=== PATIENT | female | born 1940 | race Caucasian/White ===

== ENCOUNTER 2018-07-24 15:07 | Emergency (ER) | payer OTHER, MEDICARE ==
[~2018-07-24] VITALS: Ht 154.9 cm; Wt 68.0 kg
[~2018-07-24 15:07] MED LIST: 2 BP MEDS; ALUMAG30SU PO; AMLO5 PO; BISA10S PR; CETI10; CHLO25 PO; CHOL10002 PO; CVS DISPOSABLE399 ML PR; DOCU100 PO; ENOX40I SC; ERYT.5TO BOTHEYES; FAMO20 PO; HYDACE5; HYDACE5 PO; HYDR1TAB94 PO; LISI20 PO; PRED1SU BOTHEYES; RXHYDACE PO; TRAM50; TRAM50 PO; Toprol Xl25 MG PO
== END 2018-07-24 16:53 | disposition home or self-care (01) ==
LOC: ER 15:07
DX: S60.221A Contusion of right hand, initial encounter (principal); V89.2XXA Person injured in unspecified motor-vehicle accident, traffic, initial encounter; Z79.899 Other long term (current) drug therapy; I10 Essential (primary) hypertension; Z87.891 Personal history of nicotine dependence
CPT/HCPCS: 73130; 99284-25

== ENCOUNTER 2018-10-05 21:07 | Inpatient (IN) | payer MEDICARE, OTHER ==
[~2018-10-05] VITALS: Ht 154.9 cm; Wt 77.0 kg
[2018-10-05 22:04] LABS: BASOPHILS ABSOLUTE AUTO 0.03 K/mm3 (0.00-0.23); BASOPHILS PERCENT AUTO 0 % (0-2); EOSINOPHILS PERCENT AUTO 0 % (0-6); Hematocrit 42.3 % (33.0-51.0); Hemoglobin 13.7 g/dL (11.5-16.0); IMMATURE GRAN PERCENT AUTO 1 % (0-1); LYMPHOCYTES ABSOLUTE AUTO 0.95 K/mm3 (0.84-5.20); LYMPHOCYTES PERCENT AUTO 4 % (21-46); MONOCYTES ABSOLUTE AUTO 1.85 K/mm3 (0.16-1.47); MONOCYTES PERCENT AUTO 9 % (4-13); Mean Corpuscular HGB 26.7 pg (26.0-34.0); Mean Corpuscular HGB Conc 32.4 g/dL (31.5-36.5); Mean Corpuscular Volume 82 fL (80-100); Mean Platelet Volume 9.4 fL (9.1-12.4); NEUTROPHILS ABSOLUTE AUTO 18.63 K/mm3 (1.96-9.15); NEUTROPHILS PERCENT AUTO 86 % (41-73); Platelet Count 332 K/mm3 (150-400); RDW Coefficient Variation 13.4 % (11.7-14.2); RDW Standard Deviation 40.1 fL (35.1-46.3); Red Blood Cell Count 5.14 M/mm3 (3.80-5.20); White Blood Cell Count 21.56 K/mm3 (4.00-11.30)
[2018-10-05 22:25] LABS: Alanine Aminotransfer (ALT/SGP 49 U/L (12-78); Albumin, Blood 3.3 g/dL (3.4-5.0); Albumin/Globulin Ratio 0.8 (0.8-1.8); Alk Phos 98 U/L (50-136); Anion Gap 13 mmol/L (6-16); Aspartate Aminotrans (AST/SGOT 126 U/L (12-37); Bilirubin, Total 0.8 mg/dL (0.1-1.0); Blood Urea Nitrogen 32 mg/dL (8-24); Bun/Creatinine Ratio 35.7 (12.0-20.0); CO2, Blood 23 mmol/L (21-32); Calcium, Blood 8.9 mg/dL (8.5-10.1); Chloride, Blood 99 mmol/L (98-108); Globulin, Blood 4.2 g/dL (2.2-4.0); Glomerular Filtration Rate >60 (60-); Glucose, Blood 140 mg/dL (70-99); Potassium, Blood 3.4 mmol/L (3.5-5.5); Sodium, Blood 135 mmol/L (136-145); Total Protein, Blood 7.5 g/dL (6.4-8.2)
[2018-10-05 23:17] LABS: International Normalized Ratio 1.07; Prothrombin Time Results 11.3 Sec (9.7-11.5)
[2018-10-06 04:14] LABS: BASOPHILS ABSOLUTE AUTO 0.04 K/mm3 (0.00-0.23); BASOPHILS PERCENT AUTO 0 % (0-2); EOSINOPHILS PERCENT AUTO 0 % (0-6); Hematocrit 40.1 % (33.0-51.0); IMMATURE GRAN PERCENT AUTO 1 % (0-1); LYMPHOCYTES ABSOLUTE AUTO 1.16 K/mm3 (0.84-5.20); LYMPHOCYTES PERCENT AUTO 5 % (21-46); MONOCYTES ABSOLUTE AUTO 2.08 K/mm3 (0.16-1.47); MONOCYTES PERCENT AUTO 9 % (4-13); Mean Corpuscular HGB 27.4 pg (26.0-34.0); Mean Corpuscular HGB Conc 32.4 g/dL (31.5-36.5); Mean Corpuscular Volume 84 fL (80-100); Mean Platelet Volume 9.5 fL (9.1-12.4); NEUTROPHILS ABSOLUTE AUTO 18.75 K/mm3 (1.96-9.15); NEUTROPHILS PERCENT AUTO 85 % (41-73); Platelet Count 299 K/mm3 (150-400); RDW Coefficient Variation 13.4 % (11.7-14.2); RDW Standard Deviation 41.5 fL (35.1-46.3); Red Blood Cell Count 4.75 M/mm3 (3.80-5.20); White Blood Cell Count 22.13 K/mm3 (4.00-11.30)
[2018-10-06 04:30] LABS: Bun/Creatinine Ratio 36.2 (12.0-20.0); Calcium, Blood 8.7 mg/dL (8.5-10.1); Creatinine, Blood 0.99 mg/dL (0.40-1.00); Potassium, Blood 3.8 mmol/L (3.5-5.5)
--- NOTE | 2018-10-06 18:08 | NUR ---
1738 PT ADMITTED TO MEDICAL FLOOR VIA GURNEY. TRANSFERED TO BED WITH SLIDER SHEET AND 3 STAFF. DAUGHTER AT BEDSIDE.
[2018-10-07 05:30] LABS: BASOPHILS ABSOLUTE AUTO 0.02 K/mm3 (0.00-0.23); BASOPHILS PERCENT AUTO 0 % (0-2); EOSINOPHILS ABSOLUTE AUTO 0.07 K/mm3 (0.00-0.68); EOSINOPHILS PERCENT AUTO 1 % (0-6); Hemoglobin 10.2 g/dL (11.5-16.0); IMMATURE GRAN ABSOLUTE AUTO 0.02 K/mm3 (0.00-0.10); IMMATURE GRAN PERCENT AUTO 0 % (0-1); LYMPHOCYTES ABSOLUTE AUTO 1.61 K/mm3 (0.84-5.20); LYMPHOCYTES PERCENT AUTO 15 % (21-46); MONOCYTES ABSOLUTE AUTO 1.27 K/mm3 (0.16-1.47); MONOCYTES PERCENT AUTO 12 % (4-13); Mean Corpuscular HGB 26.6 pg (26.0-34.0); Mean Corpuscular HGB Conc 31.9 g/dL (31.5-36.5); Mean Corpuscular Volume 83 fL (80-100); Mean Platelet Volume 10.1 fL (9.1-12.4); NEUTROPHILS ABSOLUTE AUTO 7.59 K/mm3 (1.96-9.15); NEUTROPHILS PERCENT AUTO 72 % (41-73); Platelet Count 237 K/mm3 (150-400); RDW Coefficient Variation 13.6 % (11.7-14.2); RDW Standard Deviation 40.9 fL (35.1-46.3); Red Blood Cell Count 3.84 M/mm3 (3.80-5.20); White Blood Cell Count 10.58 K/mm3 (4.00-11.30)
[2018-10-07 05:42] LABS: Alanine Aminotransfer (ALT/SGP 34 U/L (12-78); Albumin, Blood 2.5 g/dL (3.4-5.0); Albumin/Globulin Ratio 0.8 (0.8-1.8); Alk Phos 68 U/L (50-136); Anion Gap 8 mmol/L (6-16); Aspartate Aminotrans (AST/SGOT 65 U/L (12-37); Bilirubin, Total 0.6 mg/dL (0.1-1.0); Blood Urea Nitrogen 38 mg/dL (8-24); Bun/Creatinine Ratio 83.9 (12.0-20.0); CO2, Blood 24 mmol/L (21-32); Calcium, Blood 8.1 mg/dL (8.5-10.1); Chloride, Blood 106 mmol/L (98-108); Creatinine, Blood 0.45 mg/dL (0.40-1.00); Globulin, Blood 3.3 g/dL (2.2-4.0); Glomerular Filtration Rate >60 (60-); Glucose, Blood 89 mg/dL (70-99); Magnesium, Blood 2.5 mg/dL (1.6-2.4); Phosphorus, Blood 1.7 mg/dL (2.5-4.9); Potassium, Blood 3.3 mmol/L (3.5-5.5); Sodium, Blood 138 mmol/L (136-145); Total Protein, Blood 5.8 g/dL (6.4-8.2)
--- NOTE | 2018-10-07 05:55 | NUR ---
OSTEOPATHIC PHYSICIAN SUMMARY NEW ADMIT JUST BEFORE START OF SHIFT. PT HERE WITH SEPSIS R/T PROBABLE UTI. PT AAOX3, KNOWS SHE'S IN THE HOSPITAL IN [place] BUT THOUGHT IT WAS THE 1959'S. FOLLOWS DIRECTION AND ANSWERS MOST QUESTIONS APPROPRIATELY. PT HAS HX OF POST POLIO COMPLICATIONS WHICH CAUSES R SIDED WEAKNESS. PT IS A 1-2 PERSON TURN AND CHANGE. INCONTINENT IN ATTENDS, URINE REMAINS ODIFEROUS. PT HAS AN OLD ABRASION ON HER FORHEAD AND LEFT SHOULDER DTR REPORTS FROM A PREVIOUS FALL AT HOME. DTR REPORTS PT'S MENTATION IS MUCH IMPROVED COMPARED TO WHEN PT FIRST ARRIVED TO THE ER. VITALS HAVE BEEN STABLE. PT DENIES PAIN. WILL CONTINUE TO MONITOR.
--- NOTE | 2018-10-07 18:12 | NUR ---
SHIFT SUMMARY. A&OX3, PLEASANT. PT W/C BOUND AT BASELINE ALTHOUGH IS USUALLY ABLE TO SLIDE BOARD TRANSFER AT HOME, PT/OT WORKED WITH PT TODAY AND PT WAS NOT ABLE TO TRANSFER WITH FACILITY SLIDE BOARD, DAUGHTER HAS BROUGHT IN PT'S SLIDE BOARD FOR THERAPY TOMORROW. PT WITH ONE EPISODE OF PAIN TO R LEG THAT WAS IMPROVED WITH ROM. NO N/V, FAIR PO INTAKE. NON SOB. DAUGHTER AT BEDSIDE MOST OF THE DAY. NO NEW CHANGES.
--- NOTE | 2018-10-08 04:58 | NUR ---
BULB PLANTER SUMMARY NO ACUTE CHANGES THIS SHIFT. PT AAOX3 AND PLEASANT. MENTATION SEEMS IMPROVED COMPARED TO YESTERDAY. PT'S DTR ALSO REPORTS HER MOTHER'S MENTATION IS "IMPROVING SO MUCH". PT CONTINUES IV ABX. DENIES PAIN. IS INCONTINENT AND REQUIRES ASSISTANCE WITH REPOSITIONING DUE TO WEAKNESS FROM POST POLIO. VSS, WILL CONTINUE TO MONITOR.
[2018-10-08 05:16] LABS: Anion Gap 9 mmol/L (6-16); Blood Urea Nitrogen 23 mg/dL (8-24); Bun/Creatinine Ratio 71.9 (12.0-20.0); CO2, Blood 21 mmol/L (21-32); Chloride, Blood 109 mmol/L (98-108); Creatinine, Blood 0.32 mg/dL (0.40-1.00); Glomerular Filtration Rate >60 (60-); Glucose, Blood 95 mg/dL (70-99); Phosphorus, Blood 2.1 mg/dL (2.5-4.9); Potassium, Blood 3.4 mmol/L (3.5-5.5); Sodium, Blood 139 mmol/L (136-145)
--- NOTE | 2018-10-08 17:40 | NUR ---
PT IS A/OX3, PLEASANT AND COOPERATIVE, THE PT IS UP TO THE CHAIR WITH ASSISTANCE USEING A SLIDER BOARD, THE PT APPEARS TO BE BREATHING EASILY TODAY ON RA, THE PT REPORTED SOME MILD PAIN IN HER LEFT HAND DUE TO A FALL SHE HAD PRIOR TO ADMISSION, HOWEVER REPORTS THE PAIN MILD AND TOLERABLE, THE PT WAS UP TO THE CHAIR X2 TODAY, DAUGHTER AT THE BEDSIDE CALL LIGHT IN REACH
--- NOTE | 2018-10-09 06:35 | NUR ---
SHIFT SUMMARY PT IS AN 78 Y/O FEMALE, ADMITTED FOR SEVERE SEPSIS. SHE IS A&O X 3, AND OCCASIONALLY FORGETFUL. PT HAS A HX OF POLIO, AND IS UNABLE TO USE HER L LEG, AND SUCH IS A HEAVY 2 PERSON ASSIST TO A CHAIR AND IS WHEELCHAIR BOUND AT BASELINE. SHE DENIED ANY COMPLAINTS OF PAIN, NAUSEA OR SOB DURING THE NIGHT. VITAL SIGNS STABLE. NO OTHER ACUTE CHANGES IN PT CONDITION NOTED. WILL CONTINUE TO MONITOR AND TREAT PER EMAR.
[2018-10-09 10:37] LABS: BASOPHILS ABSOLUTE AUTO 0.04 K/mm3 (0.00-0.23); BASOPHILS PERCENT AUTO 0 % (0-2); EOSINOPHILS PERCENT AUTO 2 % (0-6); Hematocrit 34.2 % (33.0-51.0); Hemoglobin 10.8 g/dL (11.5-16.0); IMMATURE GRAN ABSOLUTE AUTO 0.05 K/mm3 (0.00-0.10); IMMATURE GRAN PERCENT AUTO 1 % (0-1); LYMPHOCYTES ABSOLUTE AUTO 1.16 K/mm3 (0.84-5.20); LYMPHOCYTES PERCENT AUTO 12 % (21-46); MONOCYTES ABSOLUTE AUTO 1.14 K/mm3 (0.16-1.47); MONOCYTES PERCENT AUTO 12 % (4-13); Mean Corpuscular HGB 26.6 pg (26.0-34.0); Mean Corpuscular HGB Conc 31.6 g/dL (31.5-36.5); Mean Corpuscular Volume 84 fL (80-100); Mean Platelet Volume 10.2 fL (9.1-12.4); NEUTROPHILS ABSOLUTE AUTO 7.16 K/mm3 (1.96-9.15); NEUTROPHILS PERCENT AUTO 73 % (41-73); Platelet Count 228 K/mm3 (150-400); RDW Standard Deviation 43.1 fL (35.1-46.3); Red Blood Cell Count 4.06 M/mm3 (3.80-5.20); White Blood Cell Count 9.75 K/mm3 (4.00-11.30)
[2018-10-09 10:54] LABS: Anion Gap 6 mmol/L (6-16); Blood Urea Nitrogen 13 mg/dL (8-24); Bun/Creatinine Ratio 47.6 (12.0-20.0); CO2, Blood 23 mmol/L (21-32); Chloride, Blood 105 mmol/L (98-108); Creatinine, Blood 0.27 mg/dL (0.40-1.00); Glomerular Filtration Rate >60 (60-); Glucose, Blood 121 mg/dL (70-99); Phosphorus, Blood 2.2 mg/dL (2.5-4.9); Potassium, Blood 3.9 mmol/L (3.5-5.5); Sodium, Blood 134 mmol/L (136-145)
[2018-10-09] MEDS ORDERED: K-Phos Origina500 MG PO (17:08)
[2018-10-09] MEDS ORDERED: PANT40 PO (17:08)
[2018-10-09] MEDS ORDERED: METR500 PO (17:09)
[2018-10-09] MEDS ORDERED: CEFD300 PO (17:09)
--- NOTE | 2018-10-09 19:37 | NUR ---
SHIFT SUMMARY: NO ACUTE CHANGEWS TO REPORT THIS SHIFT. PT A&O; CALM AND COOPERATIVE WITH CARE. NO C/O PAIN THIS SHIFT. PT HX POLIO; RLE FLACCID. 2MAX ASSIST c SLIDE BOARD FOR TRANSFERS. IV ABX CONTINUING. EXPECTED D/C TO SNF . REPORT GIVEN TO ONCOMING RN.
--- NOTE | 2018-10-09 20:09 | NUR ---
DISCHARGE NOTE PT WAS DC'D FROM [facility] [id number] TODAY TO [facility] REPORT CALLED TO IRMA JOSUE. PT PACKET GIVEN TO [facility].
== END 2018-10-09 19:39 | DRG 871 ==
LOC: ER 21:07 → ERHOLD 10-06 00:55 → MEDS 10-06 17:38
PROVIDERS: Emergency Medicine; Hospitalist; Internal Medicine; ADMIT Hospitalist
DX: A41.9 Sepsis, unspecified organism (principal); J69.0 Pneumonitis due to inhalation of food and vomit; E87.1 Hypo-osmolality and hyponatremia; E83.39 Other disorders of phosphorus metabolism; G14 Postpolio syndrome; I10 Essential (primary) hypertension; Z66 Do not resuscitate; E87.6 Hypokalemia; R65.20 Severe sepsis without septic shock; Z99.3 Dependence on wheelchair; Z87.891 Personal history of nicotine dependence
CPT/HCPCS: 36415; 71046; 80048; 80053; 83605; 83735; 84100; 84484; 85025; 85610; 93005; 93010; 96374; 96375; 96376; 97162; 97166; 97530; 99285-25; J0696; J1650; J2543; J3370; J7030; J7050

== ENCOUNTER 2018-10-29 04:21 | Inpatient (IN) | payer MEDICARE, OTHER ==
[~2018-10-29] VITALS: Ht 154.9 cm; Wt 75.9 kg
[~2018-10-29 04:21] MED LIST changes: +CEFD300 PO; +K-Phos Origina500 MG PO; +METR500 PO; +PANT40 PO
[2018-10-29] MEDS ORDERED: DOCU100 PO (05:05)
[2018-10-29] MEDS ORDERED: BISA10S PR (05:07)
[2018-10-29] MEDS ORDERED: LOPE2C PO (05:08)
[2018-10-29] MEDS ORDERED: CVS DISPOSABLE399 ML (05:08)
[2018-10-29] MEDS ORDERED: Milk Of Ma400 MG/5 M PO (05:09)
[2018-10-29] MEDS ORDERED: ACET325 PO (05:10)
[2018-10-29] MEDS ORDERED: ONDA4ODT MM (05:11)
[2018-10-29 05:44] LABS: Hematocrit 41.5 % (33.0-51.0); Hemoglobin 13.4 g/dL (11.5-16.0); Mean Corpuscular HGB Conc 32.3 g/dL (31.5-36.5); Mean Corpuscular Volume 84 fL (80-100); Mean Platelet Volume 10.2 fL (9.1-12.4); Platelet Count 536 K/mm3 (150-400); RDW Coefficient Variation 14.7 % (11.7-14.2); RDW Standard Deviation 44.5 fL (35.1-46.3); Red Blood Cell Count 4.97 M/mm3 (3.80-5.20); White Blood Cell Count 24.64 K/mm3 (4.00-11.30)
[2018-10-29 05:57] LABS: Alanine Aminotransfer (ALT/SGP 17 U/L (12-78); Albumin, Blood 2.6 g/dL (3.4-5.0); Albumin/Globulin Ratio 0.6 (0.8-1.8); Alk Phos 91 U/L (50-136); Anion Gap 10 mmol/L (6-16); Aspartate Aminotrans (AST/SGOT 19 U/L (12-37); Bilirubin, Total 0.4 mg/dL (0.1-1.0); Blood Urea Nitrogen 16 mg/dL (8-24); Bun/Creatinine Ratio 38.9 (12.0-20.0); CO2, Blood 23 mmol/L (21-32); Calcium, Blood 8.7 mg/dL (8.5-10.1); Chloride, Blood 101 mmol/L (98-108); Creatinine, Blood 0.41 mg/dL (0.40-1.00); Globulin, Blood 4.5 g/dL (2.2-4.0); Glomerular Filtration Rate >60 (60-); Glucose, Blood 151 mg/dL (70-99); Potassium, Blood 4.3 mmol/L (3.5-5.5); Sodium, Blood 134 mmol/L (136-145); Total Protein, Blood 7.1 g/dL (6.4-8.2)
[2018-10-29 06:28] LABS: BAND PERCENT MAN 21 % (0-8); BASOPHILS PERCENT MAN 0 % (0-2); EOSINOPHILS PERCENT MAN 0 % (0-6); LYMPHOCYTES ABSOLUTE MAN 1.72 K/mm3 (0.84-5.20); LYMPHOCYTES PERCENT MAN 7 % (21-46); METAMYELOCYTE ABSOLUTE MAN 0.24 K/mm3 (0.00-0.00); METAMYELOCYTE PERCENT MAN 1 % (0-0); MONOCYTES ABSOLUTE MAN 0.49 K/mm3 (0.16-1.47); MONOCYTES PERCENT MAN 2 % (4-13); NEUTROPHILS ABSOLUTE MAN 22.17 K/mm3 (1.96-9.15); SEG NEUTROPHILS PERCENT MAN 69 % (41-73); TOTAL CELLS COUNTED 100
[2018-10-29 06:43] LABS: Source, Urine Clean Catch
[2018-10-29 06:48] LABS: Blood, Urine 1+ (Neg); Glucose Qualitative, Urine Neg (Neg); Ketones, Urine 1+ (Neg); Leukocyte Esterase, Urine 2+ (Neg); Nitrite, Urine Neg (Neg); Protein, Urine 2+ (Neg); Urobilinogen, Urine 2+ (Normal)
[2018-10-29 06:55] LABS: Appearance, Urine Hazy (Clear); Bilirubin, Urine 1+ (Neg); Color, Urine Yellow (P-Yellow)
[2018-10-29 06:56] LABS: Bacteria Many /hpf; Red Blood Cells, Urine 0-2 /hpf (0-2); Squamous Epithelial Cells Mod /hpf (Few)
--- NOTE | 2018-10-29 11:02 | NUR ---
CONTACTED DAUGHTER PARDEEP, SHE WILL BE AVAILABLE FOR CONSENTS.
--- NOTE | 2018-10-29 11:58 | NUR ---
LATE ENTRY- PATIENT HAD NS INFUSING AT ADMIT TO [facility], PER DR HORNE THAT WAS FINE, AND WE DID NOT NEED TO START LR TKO. ZOSYN SENT TO OR WITH PATIENT FOR ADMINISTRATION. PHONE CONSENT OBTAINED FROM DAUGHTER PARDEEP FERNANDES) PER PATIENT. PATIENT TO OR AFTER ALL CONSENTS OBTAINED IN AN URGENT MANOR. CONTACTED DR VALDOVINOS' OFFICE AND DR ROBBINS'S OFFICE FOR RECORDS PER DR HORNE'S REQUEST. RESULTS GIVEN TO DR HORNE.
--- NOTE | 2018-10-29 12:12 | NUR ---
TYPE AND SCREEN STAT EXPIDITED FOR CONTRACT ASSISTANT. SPECIMEN HAND DELIVERED TO LAB.
[2018-10-29 15:57] LABS: PCO2 Arterial 26.6 mmHg (35-45); PO2 Arterial 90.6 mmHg (80-100); pH Blood Arterial 7.44 (7.35-7.45)
--- NOTE | 2018-10-29 18:06 | NUR ---
ARRIVAL TO ICU 1500 - PT ARRIVES TO ICU FROM RECOVERY. PT IS INTUBATED ON VENT AC 12, TV 450, PEEP 5, FIO2 40%. DENIES PAIN WHEN ASKED. PROPOFOL GTT INFUSING; TITRATED NEEDED. NGT SECURED AND ATTACHED TO LIWS. LUNG SOUNDS CLEAR. VSS. NSR 90-115. MAP 65-75. AFEBRILE. WOUND VAC SECURED TO MID ABOMINAL INCISION; NO DRAINAGE AND DRESSING INTACT. COLOSTOMY IN RLQ WITH DRY BAG. OSTOMY IS PINK AND WNL. NS MIV STARTED AT 100 ML/HR PER ORDER. BUE APPLIED. PT TURNED AND HOB ELEVATED. WILL GIVE BEDSIDE, HANDOFF REPORT TO ANSLEY RN.
--- NOTE | 2018-10-29 20:10 | NUR ---
DR MARION UPDATE DR MARION MADE AWARE OF HYPOTENSION, TACHYCARDIA AND 100ML UOP SINCE ARRIVAL. ORDER OBTAINED FOR 2L LR BOLUS.
--- NOTE | 2018-10-29 21:14 | NUR ---
ASSUMED CARE PT REMAINS INTUBATED ON VENT AC 12, VT 450, FIO2 40%, AND PEEP 5. CURRENT GTTS: PROPOFOL AT 8 MCG/KG/MIN, AND NS TKO WITH ZOSYN PIGGYBACK.
[2018-10-30 03:23] LABS: BASOPHILS ABSOLUTE AUTO 0.09 K/mm3 (0.00-0.23); BASOPHILS PERCENT AUTO 0 % (0-2); Hematocrit 33.7 % (33.0-51.0); Hemoglobin 10.9 g/dL (11.5-16.0); LYMPHOCYTES ABSOLUTE AUTO 1.32 K/mm3 (0.84-5.20); LYMPHOCYTES PERCENT AUTO 5 % (21-46); MONOCYTES ABSOLUTE AUTO 0.47 K/mm3 (0.16-1.47); MONOCYTES PERCENT AUTO 2 % (4-13); Mean Corpuscular HGB 27.1 pg (26.0-34.0); Mean Corpuscular HGB Conc 32.3 g/dL (31.5-36.5); Mean Corpuscular Volume 84 fL (80-100); Mean Platelet Volume 9.4 fL (9.1-12.4); Platelet Count 352 K/mm3 (150-400); RDW Standard Deviation 45.8 fL (35.1-46.3); Red Blood Cell Count 4.02 M/mm3 (3.80-5.20); White Blood Cell Count 26.92 K/mm3 (4.00-11.30)
[2018-10-30 03:25] LABS: EOSINOPHILS PERCENT AUTO 0 % (0-6); IMMATURE GRAN ABSOLUTE AUTO 0.23 K/mm3 (0.00-0.10); IMMATURE GRAN PERCENT AUTO 1 % (0-1); NEUTROPHILS ABSOLUTE AUTO 24.81 K/mm3 (1.96-9.15); NEUTROPHILS PERCENT AUTO 92 % (41-73)
[2018-10-30 03:41] LABS: Alanine Aminotransfer (ALT/SGP 17 U/L (12-78); Albumin, Blood 1.5 g/dL (3.4-5.0); Alk Phos 72 U/L (50-136); Anion Gap 9 mmol/L (6-16); Aspartate Aminotrans (AST/SGOT 31 U/L (12-37); Bilirubin, Total 0.3 mg/dL (0.1-1.0); Blood Urea Nitrogen 22 mg/dL (8-24); Bun/Creatinine Ratio 48.7 (12.0-20.0); CO2, Blood 21 mmol/L (21-32); Calcium, Blood 7.1 mg/dL (8.5-10.1); Chloride, Blood 110 mmol/L (98-108); Creatinine, Blood 0.45 mg/dL (0.40-1.00); Glomerular Filtration Rate >60 (60-); Glucose, Blood 133 mg/dL (70-99); Magnesium, Blood 1.9 mg/dL (1.6-2.4); Phosphorus, Blood 2.6 mg/dL (2.5-4.9); Potassium, Blood 3.6 mmol/L (3.5-5.5); Sodium, Blood 140 mmol/L (136-145)
[2018-10-30 03:42] LABS: Albumin/Globulin Ratio 0.5 (0.8-1.8); Globulin, Blood 3.3 g/dL (2.2-4.0); Total Protein, Blood 4.8 g/dL (6.4-8.2)
[2018-10-30 04:09] LABS: BAND PERCENT MAN 35 % (0-8); BASOPHILS PERCENT MAN 0 % (0-2); EOSINOPHILS PERCENT MAN 0 % (0-6); LYMPHOCYTES ABSOLUTE MAN 1.61 K/mm3 (0.84-5.20); LYMPHOCYTES PERCENT MAN 6 % (21-46); METAMYELOCYTE ABSOLUTE MAN 0.26 K/mm3 (0.00-0.00); METAMYELOCYTE PERCENT MAN 1 % (0-0); MONOCYTES ABSOLUTE MAN 0.53 K/mm3 (0.16-1.47); MONOCYTES PERCENT MAN 2 % (4-13); NEUTROPHILS ABSOLUTE MAN 24.49 K/mm3 (1.96-9.15); SEG NEUTROPHILS PERCENT MAN 56 % (41-73); TOTAL CELLS COUNTED 100
--- NOTE | 2018-10-30 04:23 | NUR ---
SBT PT FAILED SBT DUE TO INCREASED RR TO 54, TIDAL VOLUMES LESS THAN 300, MINUTE VENTILATION ABOVE 10. PT IS ALERT, RESPONSIVE AND NEUROLOGICALLY INTACT. PT IS BACK TO AC 12, VT 450, FIO2 25%, AND PEEP 5. PROPOFOL RESUMED AT 10MCG/KG/MIN.
[2018-10-30 05:09] LABS: PCO2 Arterial 24.5 mmHg (35-45); PO2 Arterial 77.1 mmHg (80-100); pH Blood Arterial 7.51 (7.35-7.45)
--- NOTE | 2018-10-30 06:27 | NUR ---
SHIFT SUMMARY PT REMAINS INTUBATED ON VENT AC 12, VT 450, PEEP 5, AND FIO2 25%. PT FAILED SBT OVERNIGHT. PT IS ALERT TO SELF AND CAN 'NOD' WHEN SHE IS IN PAIN. CURRENT GTTS: PROPOFOL @ 8MCG/KG/MIN AND NS 150ML/HR. FREQUENT 25MCG FENTANYL DOSES FOR PAIN, REPOSISITIONING AND SEDATION ADJUNCT. ANXIOUS DAUGHTER, PARDEEP, AT BEDSIDE AND HAS BEEN UPDATED FREQUENTLY. VERY INVOLVED IN CARE AND QUESTIONS ANSWERED. PT IS OLIGURIC, SEE I/O FLOW SHEET, DR MARION AWARE.
--- NOTE | 2018-10-30 07:20 | NUR ---
START OF SHIFT NOTE: RECEIVED REPORT FROM KAYLA QUINTANILLA/KAYLA ROBERTS, ASSUMED CARE, PATIENT IS VENTED, SETTINGS ARE 12//450/25 % FiO2, PATIENT IS ABLE TO OPEN EYES, UNABLE TO FOLLOW COMMANDS AT THIS TIME, HEEL PROTECTORS ON BOTH FEET, PULSES ARE PRESENT AND STRONG, MIDABDOMINAL INCISION WITH WOUND VAC AND RIGHT SIDED ILEOSTOMY, NO OUTPUT OF NOW, LUNG SOUNDS ARE COARSE WITH RHONCHI AND CRACKLES, PATIENT HAS AVALOS CATHETER IN PLACE WITH NO OUTPUT, AFEBRILE AT THIS TIME, DOES NOT APPEAR TO BE IN PAIN, NSR/ST, DAUGHTER SLEEPING IN ROOM, CALL LIGHT IN REACH, WILL CONTINUE TO MONITOR.
--- NOTE | 2018-10-30 13:12 | NUR ---
DR. PETERSON IN TO SEE PATIENT, PATIENT BRIEFLY WENT INTO A-FIB WITH A HR IN 200'S WHILE DR. PETERSON WAS AT BEDSIDE, NEW ORDERS RECEIVED, PER DR. PETERSON GIVE METOPROLOL VIA NG AND CLAMP FOR 30 MINUTES.
--- NOTE | 2018-10-30 17:55 | NUR ---
SHIFT SUMMARY NOTE: PATIENT CONTINUES TO BE ON VENT, SETTINGS ARE 12/5/450/FiO2 25 %, PROPOFOL AT 10, PATIENT WILL OPEN EYES SPONTANEOUSLY AND IS ABLE TO NOD OR SHAKE HEAD TO SIMPLE YES OR NO QUESTIONS, ABLE TO FOLLOW SOME COMMANDS, WAS MEDICATED WITH FENTANYL 25 MCG TWICE, AND FENTANYL 50 MCG ONCE FOR PAIN IN ABDOMEN, LUNG SOUNDS ARE COARSE AND DIMINISHED, PATIENT IS IN SR/ST, HAD A BRIEF EPISODE OF A-FIB WITH HR IN 200'S, RECEIVED METOPROLOL IV 2.5 MG ONCE, AND PER DR. PETERSON 12.5 MG PER NG TUBE ONCE, NG WAS CLAMPED FOR 30 MINUTES AFTER INSTILLING, PATIENT TOLERATED WELL, NO FURTHER A-FIB EPISODES, PATIENT HAS POSITIVE BOWEL TONES AND HAS MIDLINE ABDOMINAL INCISION WITH WOUND VAC, ILEOSTOMY ON RIGHT LOWER QUADRANT, BILATERAL HEELS ARE COVERED WITH MEPILEX AND FOAM BOOTS, REPOSITIONED FREQUENTLY, AVALOS CATHETER IN PLACE, OUTPUT 150 CC DURING DAY SHIFT, PATIENT ALSO RECEIVED ALBUMIN 25 % IN 50 ML'S THRICE, FOR DETAILS SEE SHIFT ASSESSMENT DOCUMENTATION AND NURSES NOTES, CALL LIGHT IN REACH, WILL CONTINUE TO MONITOR, AND GIVE REPORT TO ONCOMING ROUGH PATCHER.
--- NOTE | 2018-10-30 20:00 | NUR ---
ASSUMED CARE OF PT AT 1915. REPORT RECEIVED. PT PRESENTS IN BED. VENTED. SETTINGS AC 12, Tv 450, FIO2 25 %, PEEP 5. PT ON LIGHT SEDATION AT 10 MCG'S. DID MEDICATE PT WITH 50 MCG'S FENTANYL FOR S/S PAIN. WHEN ASK IF PT WAS HAVING ANY PAIN, SHE NODS HER HEAD 'YES'. AFTER FENTANYL, PT RESTING MORE COMFORTABLE. DID INCREASE PROPOFOL UP TO 20 MCG'S FOR IMPROVED VENT TOLERANCE. NO NOTICEABLE DROPS IN BLOOD PRESSURE. PT'S DAUGHTER IN ROOM AND IS TO LEAVE FOR THE NIGHT. DISCUSSED PLAN OF CARE FOR THIS PT WITH DAUGHTER. WILL REVIEW CHART AND FURTHER PLAN OF CARE FOR THIS PT.
--- NOTE | 2018-10-30 22:30 | NUR ---
PT'S SON CHELSI CALLS FOR UPDATE ON HIS MOTHER. UPDATE GIVEN, AND ALLOWED FOR QUESTIONS. PT MAINTAINING WELL ON 20 MCG'S PROPOFOL. BLOOD PRESSURES HAVE REMAINED WNL. WILL CONTINUE TO MONITOR PT.
--- NOTE | 2018-10-31 01:00 | NUR ---
FULL BED BATH DONE FOR THIS PT. SHE TOLERATES THIS WELL. WOUND VAC TO ABDOMINAL WOUND INTACT AND MAINTAINS SUCTION. PT CONTINUES ON 20 MCG PROPOFOL WHEREAS SHE IS ABLE TO TOLERATE VENT. IS ABLE TO OPEN EYES TO CONTACT, AND NOD HEAD 'YES' OR 'NO' TO QUESTIONS. WILL CONTINUE TO MONITOR.
--- NOTE | 2018-10-31 06:30 | NUR ---
PT HAS WEAN TRIAL THIS AM. PT BECOMES TACHYPNEIC WHEN APPROACHED, BUT WHEN STANDING BACK, PT CALMS. DID PREMEDICATE WITH 25 MCG FENTANYL. PT HAS HAD 150 ML LIQUID STOOL FROM COLOSTOMY. DOES HAVE HYPTONIC BOWEL TONES. HAS MAINTAINED BP WITH MAP > 60 THROUGH THE SHIFT. HAVE BROUGHT SEDATION BACK TO 25 MCG'S AFTER VENT WAS CHANGED BACK TO AC SETTINGS. CALL MADE TO CHELSI WHICH IS PT'S SON AND GAVE UPDATE ON PT'S WEAN TRIAL THIS AM. WILL CONTINUE TO MONITOR PT, AND WILL REPORT OFF TO ONCOMING RN.
[2018-10-31 06:47] LABS: Hematocrit 29.6 % (33.0-51.0); Hemoglobin 9.1 g/dL (11.5-16.0); Mean Corpuscular HGB 26.3 pg (26.0-34.0); Mean Corpuscular HGB Conc 30.7 g/dL (31.5-36.5); Mean Corpuscular Volume 86 fL (80-100); Mean Platelet Volume 9.6 fL (9.1-12.4); Platelet Count 203 K/mm3 (150-400); RDW Coefficient Variation 15.3 % (11.7-14.2); RDW Standard Deviation 47.8 fL (35.1-46.3); Red Blood Cell Count 3.46 M/mm3 (3.80-5.20); White Blood Cell Count 20.74 K/mm3 (4.00-11.30)
[2018-10-31 07:11] LABS: BAND PERCENT MAN 3 % (0-8); BASOPHILS PERCENT MAN 0 % (0-2); EOSINOPHILS PERCENT MAN 0 % (0-6); LYMPHOCYTES ABSOLUTE MAN 1.03 K/mm3 (0.84-5.20); LYMPHOCYTES PERCENT MAN 5 % (21-46); MONOCYTES PERCENT MAN 0 % (4-13); SEG NEUTROPHILS PERCENT MAN 92 % (41-73); TOTAL CELLS COUNTED 100
[2018-10-31 07:14] LABS: Anion Gap 9 mmol/L (6-16); Blood Urea Nitrogen 16 mg/dL (8-24); Bun/Creatinine Ratio 45.6 (12.0-20.0); CO2, Blood 19 mmol/L (21-32); Calcium, Blood 7.2 mg/dL (8.5-10.1); Chloride, Blood 115 mmol/L (98-108); Creatinine, Blood 0.35 mg/dL (0.40-1.00); Glomerular Filtration Rate >60 (60-); Glucose, Blood 81 mg/dL (70-99); Phosphorus, Blood 1.6 mg/dL (2.5-4.9); Potassium, Blood 3.1 mmol/L (3.5-5.5); Sodium, Blood 143 mmol/L (136-145)
--- NOTE | 2018-10-31 07:15 | NUR ---
START OF SHIFT NOTE: PATIENT CONTINUES ON MECHANICAL VENTILATION, SETTINGS ARE 12///FiO2 25 %, PATIENT AGAIN FAILED SBT, PROPOFOL INFUSING AT 25 MCG AT THIS TIME, PATIENT IS RESTING COMFORTABLY, ABLE TO FOLLOW SOME COMMANDS, NOD AND SHAKE HEAD TO YES AND NO QUESTIONS, LUNG SOUNDS CLEAR, NSR, BOWEL TONES ARE PRESENT IN ALL FOUR QUADRANTS, ILEOSTOMY IS DRAINING BLACK/GREENISH FLUID AT THIS TIME, 450 CC WERE EMPTIED AT BEGINNING OF THIS SHIFT, AVALOS CATHETER IN PLACE BUT MINIMAL OUTPUT, EXTREMITIES ARE PALE, AND BILATERAL HEELS ARE WRAPPED IN FOAM, AND MEPILEX APPLIED TO HEELS, SCD'S IN PLACE, ORAL CARE PROVIDED, RT IN TO SEE PATIENT, NO CHANGES TO VENT SETTINGS, CALL LIGHT IN REACH, WILL CONTINUE TO MONITOR.
--- NOTE | 2018-10-31 07:41 | NUR ---
10/31/18 0741 Lucy Sanchez VERIFICATIONS: EDIT CHART.
--- NOTE | 2018-10-31 10:45 | NUR ---
PATIENT WAS REPOSITIONED AND IT WAS NOTED THAT LEFT UPPER EXTREMITY WAS EXTREMELY SWOLLEN AND NOT PITTING EDEMA, DR. PETERSON NOTIFIED, WILL KEEP EXTREMITY ELEVATED, ALSO NOTIFIED DR. PETERSON ABOUT MINIMAL URINE OUTPUT, NO NEW ORDERS AT THIS TIME, SON AT BEDSIDE UPDATED ON PATIENT CONDITION, CALL LIGHT IN REACH, WILL CONTINUE TO MONITOR.
--- NOTE | 2018-10-31 13:16 | NUR ---
DR. PETERSON IN TO CHECK ON PATIENT, RT NOTIFIED, AT BEDSIDE WILL CHANGE SETTINGS FROM A/C TO PRESSURE SUPPORT.
--- NOTE | 2018-10-31 14:22 | NUR ---
PATIENT WAS PLACED ON ANOTHER SBT THIS AFTERNOON AND FAILED AGAIN, PATIENT WAS ON PRESSURE SUPPORT FOR 12 MINUTES AND DEVELOPED INCREASED RR AND DECREASED O2 SATS, SBT STOPPED AND PATIENT WAS PLACED BACK ON A/C 07/03/45/FiO2 25 %, DR. PETERSON NOTIFIED, NO NEW ORDERS RECEIVED.
--- NOTE | 2018-10-31 15:18 | NUR ---
PATIENT'S SON CALLED AND UPDATE ON PATIENT CONDITION PROVIDED.
--- NOTE | 2018-10-31 17:59 | NUR ---
SHIFT SUMMARY NOTE: PATIENT CONTINUES TO BE ON VENT, SETTINGS 12//450/FiO2 25 %, SBT X 2, FAILED BOTH TIMES, PATIENT IS NOW OFF PROPOFOL AND ON PRECEDEX AT 0.7 MCG, IVF CHANGED TO LR AT 125 CC/HR, RECEIVED ALBUMIN TWICE, CONTINUES ON ZOSYN, OPENS EYES TO SPEECH OR SPONTANEOUSLY, ABLE TO FOLLOW SOME COMMANDS AND NOD AND SHAKE HEAD YES OR NO TO SIMPLE QUESTIONS, LUNG SOUNDS ARE DIMINISHED, SR/SB WITH PVC'S, MIDABDOMINAL INCISION C/D/I, WOUND VAC APPLIED AND NO OUTPUT, ILEOSTOMY ON RIGHT LOWER QUADRANT HAS GOOD OUTPUT, MOSTLY BLACK/GREEN LIQUID, AVALOS CATHETER IN PLACE, AND PATIENT STARTING TO MAKE URINE, 400 CC OUTPUT DURING DAY SHIFT, HEEL PROTECTORS IN PLACE AND MEPILEX APPLIED ON EACH HEEL, FOR DETAILS SEE SHIFT ASSESSMENT DOCUMENTATION AND NURSES NOTES, CALL LIGHT IN REACH, WILL CONTINUE TO MONITOR, AND GIVE REPORT TO ONCOMING WASTE MACHINE OFFBEARER.
--- NOTE | 2018-10-31 20:53 | NUR ---
1915 ASSUMED CARE OF PT PT SEDATED WITH PRECEDEX 0.5 MCG/KG/HR. INTUBATED WITH VENT SETTINGS AC 12/450/5/25%. PUPILS EQUAL AND REACTIVE. PT OPENS EYES TO VERBAL STIMULATION AND IS ABLE TO FOLLOW COMMAND TO SQUEEZE HANDS. PT IS SINUS EILEEN WITH HR IN THE MID TO LOW 40'S. BP STABLE. LUNG SOUNDS COARSE THROUGHOUT WITH INSPIRATORY AND EXPIRATORY WHEEZES. AVALOS PATENT AND DRAINING CLOUDY YELLOW URINE. WOUND VAC IN PLACE MIDLINE ABDOMEN WITH NO DRAINAGE NOTED. ILEOSTOMY PATENT AND DRAINING DARK, WATERY STOOL. NO LEAKS AROUND APPLIANCE, STOMA APPEARS BEEFY AND RED. NG TUBE HOOKED TO LIS WITH MINIMAL GREEN OUTPUT. SEE FULL SHIFT ASSESSMENT.
[2018-11-01 04:01] LABS: Albumin, Blood 2.2 g/dL (3.4-5.0); Anion Gap 9 mmol/L (6-16); Blood Urea Nitrogen 10 mg/dL (8-24); Bun/Creatinine Ratio 27.9 (12.0-20.0); CO2, Blood 20 mmol/L (21-32); Calcium, Blood 7.3 mg/dL (8.5-10.1); Chloride, Blood 116 mmol/L (98-108); Creatinine, Blood 0.36 mg/dL (0.40-1.00); Glomerular Filtration Rate >60 (60-); Glucose, Blood 73 mg/dL (70-99); Phosphorus, Blood 1.5 mg/dL (2.5-4.9); Sodium, Blood 145 mmol/L (136-145)
--- NOTE | 2018-11-01 04:24 | NUR ---
SBT PROPOFOL ON STANDBY, PRECEDEX ON AT 0.4 MCG/KG/HR. DURING SBT PT'S RR INCREASED SIGNIFICANTLY AND RT ENDED BREATHING TRIAL.
[2018-11-01 05:33] LABS: BASOPHILS ABSOLUTE AUTO 0.06 K/mm3 (0.00-0.23); BASOPHILS PERCENT AUTO 0 % (0-2); EOSINOPHILS PERCENT AUTO 1 % (0-6); Hematocrit 32.6 % (33.0-51.0); Hemoglobin 9.8 g/dL (11.5-16.0); IMMATURE GRAN ABSOLUTE AUTO 0.66 K/mm3 (0.00-0.10); IMMATURE GRAN PERCENT AUTO 3 % (0-1); LYMPHOCYTES ABSOLUTE AUTO 1.26 K/mm3 (0.84-5.20); LYMPHOCYTES PERCENT AUTO 6 % (21-46); MONOCYTES PERCENT AUTO 2 % (4-13); Mean Corpuscular HGB Conc 30.1 g/dL (31.5-36.5); Mean Corpuscular Volume 87 fL (80-100); Mean Platelet Volume 9.9 fL (9.1-12.4); NEUTROPHILS ABSOLUTE AUTO 18.82 K/mm3 (1.96-9.15); NEUTROPHILS PERCENT AUTO 88 % (41-73); Platelet Count 197 K/mm3 (150-400); RDW Coefficient Variation 15.2 % (11.7-14.2); RDW Standard Deviation 47.9 fL (35.1-46.3); Red Blood Cell Count 3.77 M/mm3 (3.80-5.20)
--- NOTE | 2018-11-01 06:15 | NUR ---
SHIFT SUMMARY PT SEDATED ON PROPOFOL 8 MCG/KG/MIN AND PRECEDEX 0.4 MCG/KG/HR. VENT SETTINGS AC 12/450/5/30%. PT ALERT TO SELF AND FAMILY AND ABLE TO FOLLOW COMMANDS AND ANSWER QUESTIONS APPROPRIATELY BY NODDING HEAD YES/NO. RHONCHI HEARD BILATERALLY UPPER/LOWER LUNGS. MINIMAL THIN SECRETIONS SUCTIONED. RR IN THE 20'S. SINUS EILEEN WITH HR IN THE LOW 40'S-50'S. SPB 140'S. WOUND VAC INTACT WITH ZERO OUTPUT. NG TUBE HOOKED TO LIS WITH SCANT AMOUNT OF YELLOW OUTPUT. ILEOSTOMY HAD 400 ML OF BLACK WATERY STOOL. STOMA BEEFY AND PINK. AVALOS PATENT AND DRAINING, 300 ML OF CLOUDY YELLOW URINE. LEFT WRIST/ARM CONTINUES TO BE SWOLLEN WITH PERIODS OF WEEPING. NO PITTING NOTICED, PER DAYSHIFT DR PETERSON IS AWARE. PT'S DAUGHTER AT BEDSIDE. WILL REPORT TO DAYSHIFT NURSE.
--- NOTE | 2018-11-01 08:00 | NUR ---
ASSUMED CARE PT. OPENS EYES TO VERBAL STIMULI AND FOLLOW SIMPLE COMMANDS. PT. SHAKES HEAD NO TO PAIN. PT. REMAINS INTUBATED, CURRENTLY ON PRECEDEX GTT AT 0.04 MCG/KG/HR AND PROPOFOL AT 10MCG/KG/MIN FOR SEDATION/ANXIETY. PT. ABD MIDLINE HAS WOUND VAC IN PLACE. DRESSING INTACT WITH MINIMAL DRAINAGE. PT. HAS ILIOSTOMY WITH DARK BROWN/GREEN DRAINAGE. NGTUBE REMAINS IN PLACE TO LOW INT. SUCTION. PT. HAS AVALOS IN PLACE DRAINING TO GRAVITY. AFEBRILE. FAMILY AT BEDSIDE.
--- NOTE | 2018-11-01 17:15 | NUR ---
DR. PETERSON IN TO TALK WITH PT DAUGHTER. DISCUSSED FINDINGS OF CANCER WITH COLOECTOMY WELL PLAN OF CARE. AT THIS TIME PER DR. PETERSON PLAN FOR EXTUBATION TOMORROW WITH DNI/DNR STATUS AND DISCUSS FURTHER PLAN OF CARE WITH PT ONCE EXTUBATED.
--- NOTE | 2018-11-01 17:37 | NUR ---
ULTRASOUND COMPLETED TO BILAT UE PT. POSITIVE FOR DVT. DR. PETERSON NOTIFIED. PLANS TO CHANGE TO FULL DOSE LOVENOX
--- NOTE | 2018-11-01 17:40 | NUR ---
SHIFT SUMMARY PT. REMAINS DROWSY BUT AWAKENS TO VERBAL STIMULI. REMAINS ON VENT AT THIS TIME WITH PLANS TO EXTUBATE TOMORROW. AVALOS REMAINS IN PLACE DRAINING TO GRAVITY, ONE DOSE OF LASIX GIVEN THIS SHIFT. TUBE FEED STARTED THIS PM AT 10ML/HR. PT. ULTRASOUND SCREENING POSITIVE FOR DVT TO BILAT UE. FAMILY REMAINS AT BEDSIDE T/O DAY. VSS. REPORT TO ONCOMING RN
--- NOTE | 2018-11-01 20:00 | NUR ---
ASSUMED CARE OF PT AT 1915. REPORT RECEIVED AT BEDSIDE. PT PRESENTS IN BED. VENTED - SETTINGS CHECKED AND VERIFIED. AC 12, 450, 30 %, PEEP 5. SPOKE WITH DR PETERSON CONCERNING AM WEAN AND PLAN OF CARE FOR THIS PT. PLAN IS TO NOT HAVE WEAN DURING THIS SHIFT. WILL DO WEAN WHILE MD IS AT BEDSIDE. DISCUSSED THIS PLAN WITH DAUGHTER PARDEEP. SHE VERBALIZES THAT SHE IS VERY ANXIOUS AND WANTS TO SPEAK ABOUT AN GROUND [employer]W CHIEF AND WILL FOR THIS PT. PARDEEP SPEAKS IN VERY PRESSURED SPEACH PATTERN. SHE STATES THAT HER BROTHER, CHELSI, IS ARRIVING FROM [facility] THIS NIGHT. SHE HAS SUBSEQUENTLY LEFT FOR "COFFEE" SHE SAYS SHE WILL BE BACK IN THIS EVENING. WILL REVIEW CHART AND PLAN OF CARE FOR THIS PT.
--- NOTE | 2018-11-01 23:36 | NUR ---
PT CURRENTLY MAINTAINING > 90 PERCENT WITH CURRENT VENT SETTINGS. REINFORCED DRESSING OVER WOUND VAC SECONDARY TO LOSS OF SUCTION. TEGRADERMS PLACED OVER SITE WHICH CORRECTS LEAK. COLOSTOMY DRAINING BROWNISH LIQUID. PT IN NO APPARENT DISTRESS. CHECK OF RESIDUAL FROM NG TUBE REVEALS 80 ML. THIS REINFUSED. WILL DO Q 4 HOUR CHECKS AND NEEDED. PT'S DAUGHTER RETURNS TO ROOM FOR A SHORT VISIT AND HAS LEFT AGAIN. WILL CONTINUE TO MONITOR PT.
--- NOTE | 2018-11-02 03:00 | NUR ---
PT'S DAUGHTER BACK TO ROOM AND IS TO SPEND THE NIGHT. PT TOLERATING TURNS IN BED WELL. TUBE FEEDINGS CONTINUE AT 10 ML PER HOUR WITH WATER FLUSHES. HAVE NOT REQUIRED MUCH SUCTIONING THIS NIGHT. MAINTAINING ON CURRENT VENT SETTINGS. WILL CONTINUE TO MONITOR PT.
[2018-11-02 03:56] LABS: Albumin, Blood 1.8 g/dL (3.4-5.0); Anion Gap 8 mmol/L (6-16); Blood Urea Nitrogen 10 mg/dL (8-24); Bun/Creatinine Ratio 34.1 (12.0-20.0); CO2, Blood 20 mmol/L (21-32); Calcium, Blood 7.3 mg/dL (8.5-10.1); Chloride, Blood 113 mmol/L (98-108); Creatinine, Blood 0.29 mg/dL (0.40-1.00); Glomerular Filtration Rate >60 (60-); Glucose, Blood 107 mg/dL (70-99); Phosphorus, Blood 3.1 mg/dL (2.5-4.9); Potassium, Blood 3.2 mmol/L (3.5-5.5); Sodium, Blood 141 mmol/L (136-145)
[2018-11-02 04:14] LABS: BASOPHILS ABSOLUTE AUTO 0.05 K/mm3 (0.00-0.23); BASOPHILS PERCENT AUTO 0 % (0-2); EOSINOPHILS PERCENT AUTO 1 % (0-6); Hematocrit 28.5 % (33.0-51.0); Hemoglobin 9.2 g/dL (11.5-16.0); IMMATURE GRAN ABSOLUTE AUTO 0.83 K/mm3 (0.00-0.10); IMMATURE GRAN PERCENT AUTO 5 % (0-1); LYMPHOCYTES ABSOLUTE AUTO 1.13 K/mm3 (0.84-5.20); LYMPHOCYTES PERCENT AUTO 6 % (21-46); MONOCYTES ABSOLUTE AUTO 0.67 K/mm3 (0.16-1.47); MONOCYTES PERCENT AUTO 4 % (4-13); Mean Corpuscular HGB 26.7 pg (26.0-34.0); Mean Corpuscular HGB Conc 32.3 g/dL (31.5-36.5); Mean Corpuscular Volume 83 fL (80-100); NEUTROPHILS ABSOLUTE AUTO 15.05 K/mm3 (1.96-9.15); NEUTROPHILS PERCENT AUTO 84 % (41-73); Platelet Count 170 K/mm3 (150-400); RDW Coefficient Variation 15.1 % (11.7-14.2); RDW Standard Deviation 45.1 fL (35.1-46.3); Red Blood Cell Count 3.45 M/mm3 (3.80-5.20); White Blood Cell Count 17.93 K/mm3 (4.00-11.30)
--- NOTE | 2018-11-02 06:17 | NUR ---
PT CONTINUES WITH PUFFY/EDEMATOUS UPPER EXTREMITIES. MORESO IN LEFT UPPER EXTREMITY. HAVE ELEVATED EXTREMITIES ON PILLOWS. CHEST X RAY HAS BEEN DONE THIS AM. HAVE PLACED PT ON SEDATION VACATION FROM PROPOFOL. DID LEAVE PRECEDEX TO OFFSET PT'S ANXIETY. DAUGHTER AT BEDSIDE VISITING WITH PT. WILL CONTINUE TO MONITOR PT, AND WILL REPORT OFF TO ONCOMING RN.
--- NOTE | 2018-11-02 08:15 | NUR ---
ASSUMED CARE PT. ALERT THIS AM FOLLOWING SIMPLE COMMANDS. REMAINS INTUBATED AT THIS TIME. PT. FAMILY AT BEDSIDE AT THIS TIME. PLANS TO EXTUBATE THIS AFTERNOON. PT. REMAINS ON LOW DOSE OF PROPOFOL AT 10MCG/KG/MIN AND 0.02 MCG/KG/MIN OF PRECEDEX FOR AGGITATION/ ANXIETY. PT. WOUND VAC REMAINS IN PLACE TO MIDLINE ABD. ILEOSTOMY TO RIGHT ABD; 100ML OF LIGHT BROWN LIQUID. TUBE FEEDING REMAINS AT 10ML/HR OF PIVIOT 1.5. LEFT ARM REMAINS SWOLLEN AND WEEPING WITH DRI-TIM IN PLACE. VSS AT THIS TIME.
--- NOTE | 2018-11-02 10:36 | NUR ---
WEAN PT STARTED ON WEAN RT AND RN AT BEDSIDE. PT FOLLOWING COMMANDS AT THIS TIME AND TAKING DEEP BREATHES WHEN INSTRUCTED. PT SHAKES HEAD YES TO PAIN AND WAS MED WITH FENTAYL. PT SLOWS BREATHING TO INSTRUCTION. DR. PETERSON AT BEDSIDE. PER DR. PETERSON EXTUBATE WHEN READY.
--- NOTE | 2018-11-02 10:45 | NUR ---
PT EXTUBATED AT 1045. PT TOLERATED WELL. WEAK COUGH. PT. PLACED ON 4LNC AT THIS TIME RR MID 20S. SPO2 99%
--- NOTE | 2018-11-02 14:30 | NUR ---
PT RESTING COMFORTABLY IN BED REPORTS PAIN MEDICINE DID HELP WITH REDUCING PAIN TO THROAT AND ABD. NADN. ORAL CARE COMPLETED. REPORTS SHE IS COMFORTABLE AT THIS TIME.
--- NOTE | 2018-11-02 18:13 | NUR ---
SHIFT SUMMARY PT. EXTUBATED TODAY. TOLERATING 2LNC AT THIS TIME. PLANS TO TRANSITION PT HOME TO HOSPICE. AUDIO TECHNICIAN CONSULT PLACED. PT. MED FOR PAIN T/O DAY. WOUND VAC REMAINS IN PLACE TO MIDLINE ABD. OSTOMY CONTINUES WITH LIQUID GREENISH BROWN STOOL. PT. CURRENTLY MED STATUS NO TELE. PT. FAMILY AT BEDSIDE T/O DAY.
--- NOTE | 2018-11-02 20:00 | NUR ---
ASSUMED CARE OF PT AT 1915. REPORT RECEIVED AT BEDSIDE. PT PRESENTS IN BED. ALERT AND ORIENTED. IS ABLE TO SPEAK AND MAKE HER NEEDS KNOWN. PT'S FAMILY AT BEDSIDE. PT HAS NO COMPLAINTS OF PAIN AT THIS TIME. PT TOLERATES TURN IN BED WELL WITHOUT COMPLAINTS. WILL REVIEW CHART AND PLAN OF CARE FOR THIS PT.
--- NOTE | 2018-11-02 20:00 | NUR ---
ASSUMED CARE OF PT AT 1915. REPORT RECEIVED AT BEDSIDE. PT WEARING BIPAP MASK. AND GUESTS AT BEDSIDE. PRECEDEX AT 0.3MCG'S/KG PT CONTINUES TO BE SOMEWHAT ANXIOUS. IS ABLE TO HAVE CONVERSATION WITH . DOES ASK THE SAME QUESTIONS MULTIPLE TIMES. IS EASILY FORGETFUL. REASSURED PT. WILL REVIEW CHART AND PLAN OF CARE FOR THIS PT.
--- NOTE | 2018-11-02 22:51 | NUR ---
PT'S FRIENDS AND HIS HAS GONE HOME FOR THE NIGHT. HAVE NOTED, PT HAS BECOME INCREASINGLY ANXIOUS AND CONFUSED. DID INCREASE PRECEDEX TO 0.4 MCG'S. PT FREQUENTLY ASKING FOR SWALLOWS OF WATER. EXPLAINED TO PT THAT HE IS NPO (FULLY EXPLAINED) AND HE HAS PEG TUBE THAT HE GETS WATER AND MEDS THROUGH. FREQUENT REORIENTAION. PT CONTINUES TO YELL OUT. SOON STAFF LEAVES ROOM, HE BEGINS TO YELL FOR HELP AGAIN. REASSURED PT FREQUENTLY. WILL TITRATE PRECEDEX TO AFFECT.
--- NOTE | 2018-11-03 | NUR ---
HAVE MEDICATED PT WITH 25 MCG'S FENTANYL FOR ABDOMINAL PAIN. PT HAS BEEN ABLE TO SWALLOW WATER USING INSTRUCTED SAFE SWALLOW TECHNIQUE. MARY MCCLURE. PT HAS BEEN ABLE TO TAKE HER PO MEDICATIONS IN APPLESAUCE. NO COUGH WITH SWALLOW. THESE TECHNIQUES ALSO TAUGHT TO PT'S DAUGHTER AND SON. PT HAS TOLERATED Q 2 HOUR TURNS IN BED. COLOSTOMY INTACT DRAINING LIQUID BROWNISH STOOL. WOUND VAC TO ABDOMEN REMAINS TO SEAL. WILL CONTINUE TO MONITOR PT.
--- NOTE | 2018-11-03 05:45 | NUR ---
PT HAS HAD SOME DIFFICULTY WITH GETTING TO SLEEP THIS NIGHT. HAS SOME TRASNSIENT MILD DISORIENTATION. DOES REORIENT RATHER EASILY. HAVE MEDICATED PT AGAIN WITH 25 MCG FENTANYL WITH GOOD RELIEF. HAVE MEDICATED ONCE WITH ZOFRAN 4 MG FOR NAUSEA. PT CURRENTLY SLEEPING IN BED WITHOUT S/S DISTRESS. WILL CONTINUE TO MONITOR PT, AND WILL REPORT OFF TO ONCOMING RN.
--- NOTE | 2018-11-03 07:15 | NUR ---
RECEIVED REPORT FROM KAYLA MAURICIO, AND ASSUMED CARE OF PT.
--- NOTE | 2018-11-03 07:32 | NUR ---
CALLED REPORT TO KAYLA GLASER, WHOM WILL ASSUME CARE OF PT WHEN TRANSFERRED TO ROOM 303.
--- NOTE | 2018-11-03 08:00 | NUR ---
PT ARRIVED TO ROOM 303 FROM ICU 13 VIA BED. USING SLIDER SHEET PT TRANSFERRED TO ID BED. PT TOLERATED WELL. ACCOMPANIED BY DAUGHTER. PT AND FAMILY ORIENTED TO ROOM AND CALL SYSTEM. BED IN LOWEST POSITION AND CALL MACHUCA IN REACH. WILL MONITOR
--- NOTE | 2018-11-03 10:00 | NUR ---
PT WITH AND EPISODE OF EMESIS, SUCTION SET UP TO ROOM AND MOUTH SUCTIONED OF RESIDUAL EMESIS. AM MEDS OF AUGMENTIN AND LOPRESSOR HELD, DR MOTT AWARE.
--- NOTE | 2018-11-03 18:32 | NUR ---
HOSPICE CONSULT ENTERED, GOAL IS FOR PT TO DISCHARGE HOME WITH HOSPICE. N/V THIS AM AND WAS MEDICATED PER EMAR. MEDICATED FOR PAIN AND NAUSEA THIS AFTERNOON(SEE EMAR) TO GOOD EFFECT. ILLEOSTOMY WITH OUTPUT, WOUND VAC TO ABDOMINAL SURGICAL INCISION C/D/I WITH GOOD VACUUM SEAL. NO ACUTE CHANGES NOTED THIS SHIFT, WILL CONTINUE TO MONITOR AND REPORT TO ONCOMING RN
--- NOTE | 2018-11-04 06:00 | NUR ---
SHIFT SUMMARY PT A/O BUT SLOW TO RESPOND. ILISOTOMY DRAINING GREEN BROWN LIQ AND GAS. AVALOS DRAINING. NO N/V. SAYS HER LEGS AND BACK GIVE HER PAIN SOMETIMES BUT DIDN'T WANT ANY PAIN MEDS. Q2HR TURNS. SHE WAS ABLE TO DOZE ON AND OFF T/O NOC. CALL LIGHT IN REACH.
--- NOTE | 2018-11-04 17:27 | NUR ---
SHIFT SUMMARY THE PATIENT PRESENTED THIS MORNING WITH CLEAR LUNGS, A&O X3 AND WITH VITALS WNL. THE PATIENT HAS AWOUND VAC IN PLACE, AND A AVALOS CATHETER. THE PATIENT'S DAUGHTER WAS VISITING THE PATIENT THIS SHIFT. THE PATIENT WAS EVALUATED BY P/T TODAY. THE PATIENT IS GOING HOME ON HOSPICE IN A COUPLE OF DAYS, WILL CONTINUE TO MONITOR.
--- NOTE | 2018-11-04 17:33 | NUR ---
Initial Visit: Palliative Care Consult for goals fo care. Pt is A&O and yonatan pain at this time. Pt denies anxiety and dyspnea as well. Pt reports current regimen is managing her nausea. Engaged in therapeutic conversation regarding her decision for hospice. Asked Pt to express any concerns or fears regarding her diagnosis and goal for hospice. Pt reports that she does not have any concerns and is at peace. Pt reports she is of [employer] ag[employer] and her daughter Cammie plans to move in with her and help with any care needs. Pt also reports that she has a caregiver that comes in for 6 hours twice a week. Suggested to Pt that she may need to consider caregivers to come more frequent and longer as the disease process takes its coarse. Pt is agreeable with this idea and will consider it. 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 Pt reports she requires assistance with transfers, bathing, and dressing. She experiences occasional incontincence and currently has a colostomy. Pt reports no concerns at this time. PPS 40% [place] 40% ADLs 5/6 Spoke with Pt's nurse Roberto and he reports no concerns at this time. Plan: Place hospice refferal, spiritual care consult for daily visits, and will remain available.
--- NOTE | 2018-11-05 05:47 | NUR ---
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 PT AAOX3 AND VERY PLEASANT. TOLERATING REGULAR DIET. COLOSTOMY COLLECTING SMALL AMOUNTS OF DARK BROWN STOOL. AVALOS CATHETER PATENT AND DRAINING. PT DENIES PAIN. VSS, WILL CONTINUE TO MONITOR.
--- NOTE | 2018-11-05 14:23 | NUR ---
Patient is lying in bed and alert when I entered patient's room. Patient is kind and honest. Patient shared about her terminal cancer diagnosis and mentioned that Deborah from [facility] has been to see her. I talked with patient about her family support system and her agnieszka and provided prayer for the patient. Patient asked me to visit again. I will remain available.
--- NOTE | 2018-11-05 17:11 | NUR ---
SHIFT SUMMARY THE PATIENT PRESENT THE SHIFT WITH VITALS WNL, A&O X4 AND WITH LUNGS SOUNDS THAT WERE CLEAR, BUT DIM IN THE BASES. THE PATIENT HAD HER AVALOS REMOVED THIS SHIFT PER ORDERS, AND HAD PT AND OT WORK WITH HER. THE PATIENT'S FAMILY VISITED FOR HALF THIS SHIFT WITH THE PATIENT. THE PATIENT IS RESTING AT THIS TIME, WILL CONTINUE TO MONITOR.
--- NOTE | 2018-11-05 17:41 | NUR ---
Met with Mrs. Philip and her dtrs at [facility]. Pt appears frail and is a bit slow to respond. Dtrs appear devoted to caring for pt. Plan to take pt home on hospice services tomorrow. Family responded well to affirmation of obvious love and prayer. Family departed and Mrs. Philip and I had conversation about her passing. I provided theraputic listening to her agnieszka journey, her regrets and great loves. Facilitated loan counselor to good effect. Pt appears calm and accepting of end-of-life. She has a agnieszka in a loving God and a beleif in an afterlife. I supported and affirmed her beliefs and provided prayer for a peaceful transition. We had an easy rapport. I will remain available.
--- NOTE | 2018-11-06 03:54 | NUR ---
SUMMARY: PT A/OX4 W/FLAT AFFECT BUT PLEASANT AND COOPERATIVE W/CARE. NEW ILEOSTOMY W/APPARATUS INTACT, SMALL AMT LIQUID AND JELLY BROWN OUTPUT OBSERVED. PT PASSING FLATUS AND BT'S PRESENT X4 QUADS. PT HAS SURGICAL MIDLINE INCISION W/PORTABLE WOUND VAC, DX AND SUCTION INTACT. STAFF HAD TO REINFORCE DX THIS SHIFT D/T ALARMING BUT IS AGAIN PATENT/DRAINING. SCANT AMT OF DARK RED/BROWN OUPUT NOTED. PT INCONTINENT W/ATTENDS CHANGED PRN. TURN SCHEDULE MAINTAINED AND PT FLOATED W/MEPILEXES TO HEELS FOR SBD PREVENTION. 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 PHYS TX WORKED W/PT AND HAD HER TO EOB ON DAY SHIFT. PT DENIES NEEDING PAIN MEDS BUT OCCASIONALLY ADMITS TO TENDER ABDO. DAUGHTER (PARDEEP) WOULD LIKE TO BE NOTIFIED IN AM IF ORDERS ARE RECIEVED TO D/C W/AMEDYSIS TODAY ON HOSPICE. NO ACUTE CHANGES. VSS/AFEBRILE. WILL MONITOR AND REPORT TO DAY RN.
--- NOTE | 2018-11-06 06:54 | NUR ---
Pt gave me permission to care for her on 11/06/2018.
--- NOTE | 2018-11-06 08:18 | NUR ---
WOUND VAC PT WOUND VAC CONTINUES TO BEEP. NURSING STAFF UNABLE TO FIGURE OUT WHAT IS WRONG. MESSAGE LEFT WITH DR. GOMES ON IF THE WOUND VAC NEEDS TO STAY IN PLACE OR IF A DRESSING CAN BE PLACED OVER THE INSICION BECAUSE PT IS PLANNING TO DC ON HOSPICE.
--- NOTE | 2018-11-06 10:23 | NUR ---
Patient is lying in bed and alert when I entered the patient's room. Patient immediately stated that she is ging home this day. She also said that she hopes she has some time to enjoy her time with her daughter and niece. In our discussion patient I talked with her about being fully present and thankful for each day and leaning deeply into her agnieszka. Patient stated that this is the way she wants to be until her last breath. I provided emotional support, companionship and prayer. Patient responded well.
[2018-11-06] MEDS ORDERED: XARELTO15 MG PO (10:24)
[2018-11-06] MEDS ORDERED: LORA.5 PO (10:24)
[2018-11-06] MEDS ORDERED: MORP20L PO (10:24)
--- NOTE | 2018-11-06 11:42 | NUR ---
PT DISCHARGED PT DISCHARGED WITH HOSPICE AT 1140. PT IN STABLE CONDITION WITH VSS. PT EDUCATED ON DC INSTRUCTIONS & GIVEN DC PACKET. PT PICKED UP BY [facility] & TRANSFERED HOME TO MEET HER DAUGHTER & AMEYSIS.
== END 2018-11-06 11:41 | disposition hospice, home (50) | DRG 853 ==
LOC: ER 04:21 → MEDS 08:33 → ICUW 08:33 → MEDS 12:42 → ICUW 15:00 → MEDS 11-03 07:52 → ENPENDDIS 11-06 09:38 → MEDS 11-06 11:41
PROVIDERS: Emergency Medicine; Internal Medicine Critical Care Medicine; Surgery; ADMIT Family Medicine
PROC: 0D1B0Z4 Bypass Ileum to Cutaneous, Open Approach (ICD-10-PCS; principal; 2018-10-29 11:45)
PROC: 0BH17EZ Insertion of Endotracheal Airway into Trachea, Via Natural or Artificial Opening (ICD-10-PCS; 2018-10-30)
PROC: 5A1955Z Respiratory Ventilation, Greater than 96 Consecutive Hours (ICD-10-PCS; 2018-10-30)
DX: A41.9 Sepsis, unspecified organism (principal); K63.1 Perforation of intestine (nontraumatic); J95.821 Acute postprocedural respiratory failure; C19 Malignant neoplasm of rectosigmoid junction; I82.622 Acute embolism and thrombosis of deep veins of left upper extremity; R65.20 Severe sepsis without septic shock; F03.90 Unspecified dementia, unspecified severity, without behavioral disturbance, psychotic disturbance, mood disturbance, and anxiety; G14 Postpolio syndrome; Z66 Do not resuscitate; I48.0 Paroxysmal atrial fibrillation
CPT/HCPCS: 31720; 36415; 36600; 71045; 74176; 80053; 80069; 81001; 82803; 82947; 83605; 83690; 83735; 84100; 85025; 86850; 86900; 86901; 87040; 87077; 87086; 87186; 88305; 88307; 88309; 93005; 93010; 93970; 94002; 94003; 96361; 96365; 97110; 97163; 97166; 97530; 99285-25; C9113; J0696; J1650; J1940; J2370; J2405; J2543; J2704; J3010; J3480; J7030; J7050; J7060; J7120; P9041; P9046; P9612